=== PATIENT | male | born 1970 | race African-American/Black ===

== ENCOUNTER 2018-05-05 12:33 | Inpatient (IN) | payer BC ==
[2018-05-05 13:59] VITALS: BMI 25.8
--- NOTE | 2018-05-05 15:01 | HP ---
CIWA Score Nausea/Vomitin-Mild Nausea/No Vomiting Muscle Tremors: 2 Anxiety: 2 Agitation: 1-Slight > Activity Paroxysmal Sweats: 1-Minimal Palms Moist Orientation: 2-Disoriented Date<2 days (to date) Tacttile Disturbances: 1-Very Mild Itch/Numbness Auditory Disturbances: 1-Very Mild Visual Disturbances: 0-None Headache: 1-Very Mild CIWA-Ar Total Score: 12 - Admission Criteria [facility] Guidelines: Admission for Medically Managed Detox: Requires at least one of the followin. CIWA greater than 12 2. Seizures within the past 24 hours 3. Delirium tremens within the past 24 hours 4. Hallucinations within the past 24 hours 5. Acute intervention needed for co occurring medical disorder 6. Acute intervention needed for co occurring psychiatric disorder 7. Severe withdrawal that cannot be handled at a lower level of care (continued vomiting, continued diarrhea, abnormal vital signs) requiring intravenous medication and/or fluids 8. Admission ROS S - [facility] Chief Complaint: alcohol withdrawal sx Allergies/Adverse Reactions: Allergies Allergy/AdvReac Type Severity Reaction Status Date / Time No Known Allergies Allergy Verified 05/05/18 15:00 History of Present Illness: 48 years old with long history of alcohol nicotine dependence has hypertension asthma dry skin drinking alcohol since age 16 currently drinking volka 2 P daily x 2 weeks use cocaine 50$ every other day since age 30 years old out of intermediate since 2017 denies history of seizure or DT methadone maintenance program 70 mg po daily last dose 05/05/18 longest sobriety 7 years in intermediate Exam Limitations: No Limitations - Ebola screening Have you traveled outside of the country in the last 21 days: No Have you had contact with anyone from an Ebola affected area: No Have you been sick,other than usual withdrawal symptoms: No Do you have a fever: No - Review of Systems Constitutional: Changes in sleep, Weight Stable EENT: reports: Blurred Vision (eye glasses) Respiratory: reports: Wheezing Cardiac: reports: No Symptoms Reported GI: reports: Nausea, Poor Fluid Intake : reports: No Symptoms Reported Musculoskeletal: reports: Joint Pain (right shoulder pain x 4 months) Integumentary: reports: Dryness Neuro: reports: No Symptoms reported Endocrine: reports: No Symptoms Reported Hematology: reports: No Symptoms Reported Psychiatric: reports: Disorientated (disoriented to date) Other Systems: Reviewed and Negative Patient History - Patient Medical History Hx Anemia: No Hx Asthma: Yes Hx Chronic Obstructive Pulmonary Disease (COPD): No Hx Cancer: No Hx Cardiac Disorders: No Hx Congestive Heart Failure: No Hx Hypertension: Yes Hx Hypercholesterolemia: No Hx Pacemaker: No HX Cerebrovascular Accident: No Hx Seizures: No Hx Dementia: No Hx Diabetes: No Hx Gastrointestinal Disorders: Yes Hx Liver Disease: No Hx Genitourinary Disorders: No Hx Sexually Transmitted Disorders: No Hx Renal Disease (ESRD): No Hx Thyroid Disease: No Hx Human Immunodeficiency Virus (HIV): No Hx Hepatitis C: No Hx Depression: No Hx Suicide Attempt: No Hx Bipolar Disorder: No Hx Schizophrenia: No - Patient Surgical History Past Surgical History: No - PPD History Previous Implant?: Yes Documented Results: Negative w/o proof Implanted On Prior [facility] Admission?: No PPD to be Administered?: Yes - Smoking Cessation Smoking history: Current every day smoker Have you smoked in the past 12 months: Yes Aproximately how many cigarettes per day: 10 Hx Chewing Tobacco Use: No Initiated information on smoking cessation: No 'Breaking Loose' booklet given: 05/05/18 - Substance & Tx. History Hx Alcohol Use: Yes Hx Substance Use: Yes Substance Use Type: Alcohol, Cocaine, Heroin, Opiates Hx Substance Use Treatment: Yes (2014) - Substances Abused Alcohol Route: Oral Frequency: Daily Amount used: voldka 2 P Age of first use: 16 Date of Last Use: 05/05/18 Cocaine Route: Inhalation Frequency: 3-6 times per week Amount used: 50$ Age of first use: 30 Date of Last Use: 05/03/18 Family Disease History - Family Disease History Family Disease History: Other: Father (), Mother (), Brother ( ), Sister () Admission Physical Exam [facility] - Vital Signs Vital Signs: Vital Signs - 24 hr 05/05/18 13:53 Temperature 98.2 F Pulse Rate 72 Respiratory 20 Rate Blood Pressure 122/74 - Physical General Appearance: Yes: Nourished, Appropriately Dressed, Mild Distress, Tremorous, Irritable, Sweating, Anxious HEENTM: Yes: Hearing grossly Normal, Normocephalic, Normal Voice, Pharynx Normal , TM Erythema Respiratory: Yes: Chest Non-Tender, Lungs Clear, Normal Breath Sounds, No Respiratory Distress, No Accessory Muscle Use Neck: Yes: Supple, Trachea in good position Breast: Yes: Breasts Symetrical, No masses Cardiology: Yes: Regular Rhythm, Regular Rate, S1, S2 Abdominal: Yes: Non Tender, Flat, Soft Genitourinary: Yes: Within Normal Limits Back: Yes: Normal Inspection Musculoskeletal: Yes: full range of Motion, Gait Steady Extremities: Yes: Normal Inspection, Normal Range of Motion, Non-Tender, Tremors Neurological: Yes: Alert, Motor Strength 5/5, Normal Mood/Affect, Normal Response Integumentary: Yes: Dry Lymphatic: Yes: Within Normal Limits - Diagnostic (1) Alcohol dependence with uncomplicated withdrawal Current Visit: Yes Status: Acute (2) Methadone maintenance therapy patient Current Visit: Yes Status: Chronic (3) Otitis externa Current Visit: Yes Status: Acute Qualifiers: Otitis externa type: diffuse Chronicity: chronic Laterality: right Qualified Code(s): H60.311 - Diffuse otitis externa, right ear (4) Dry skin dermatitis Current Visit: Yes Status: Chronic (5) Fungal infection of foot Current Visit: Yes Status: Chronic Qualifiers: Laterality: bilateral Qualified Code(s): B35.3 - Tinea pedis (6) Asthma Current Visit: Yes Status: Chronic Qualifiers: Asthma severity: mild Asthma persistence: intermittent Asthma complication type: with status asthmaticus Qualified Code(s): J45.22 - Mild intermittent asthma with status asthmaticus (7) Nicotine dependence Current Visit: Yes Status: Acute Qualifiers: Nicotine product type: cigarettes Substance use status: in withdrawal Qualified Code(s): F17.213 - Nicotine dependence, cigarettes, with withdrawal Cleared for Admission [facility] - Detox or Rehab [facility] Level of Care: Medically Managed Detox Regimen/Protocol: Librium [facility] Breath Alcohol Content Breath Alcohol Content: 0.021 Urine Drug Screen - Control Is Test Valid: Yes - Results Drug Screen Negative: No Urine Drug Screen Results: RAYMUNDO-Cocaine, OPI-Opiates, OXY-Oxycodone
[2018-05-05] MEDS ORDERED: MENTHOL/PHENOL 1 EACH UD MM PRN (15:17)
[2018-05-05] MEDS ORDERED: chlordiazePOXIDE HCL 25 MG CAPSULE PO PRN (15:17)
[2018-05-05] MEDS ORDERED: NICOTINE POLACRILEX 2 MG GUM BC PRN (15:17)
[2018-05-05] MEDS ORDERED: MAGNESIUM HYDROX 2400MG/30ML ORAL SUSPENSION 30 ML CUP PO PRN (15:17)
[2018-05-05] MEDS ORDERED: MAG HYDROX/AL HYDROX/SIMETH 30 ML UNIT-DOSE CUP PO PRN (15:17)
[2018-05-05] MEDS ORDERED: P-EPHED 60MG/TRIPROLIDI 2.5MG TABLET PO PRN (15:17)
[2018-05-05] MEDS ORDERED: LOPERAMIDE HCL 2 MG CAPSULE PO PRN (15:17)
[2018-05-05] MEDS ORDERED: guaiFENesin/D-METHORPHAN HB 10 ML UNIT-DOSE CUPS PO PRN (15:17)
[2018-05-05] MEDS ORDERED: MAGNESIUM CITRATE 300 ML BOTTLE PO PRN (15:17)
[2018-05-05] MEDS ORDERED: MINERAL OIL/PETROLAT/WATER TOPICAL CREAM 113 GM JAR TP PRN (15:21)
[2018-05-05] MEDS: NICOTINE 14 MG/24 HOURS TOPICAL PATCH TD SCH (20:04)
[2018-05-05] MEDS: IBUPROFEN 600 MG TABLET (FP) PO PRN (20:08)
[2018-05-05] MEDS ORDERED: ALBUTEROL SO4 8 GM HFA INHALER IH ONE (20:55)
[2018-05-05] MEDS: ALBUTEROL SO4 8 GM HFA INHALER IH PRN (21:45)
[2018-05-05] MEDS ORDERED: MELATONIN 5 MG TABLETS PO PRN (22:00)
[2018-05-05] MEDS: THIAMINE HCL 100 MG TABLET (FP) PO SCH (22:13)
[2018-05-05] MEDS: chlordiazePOXIDE HCL 25 MG CAPSULE PO SCH (22:13)
[2018-05-05] MEDS: CLOTRIMAZOLE 1% CREAM 15 GM TUBE TP SCH (22:14)
[2018-05-05] MEDS: OFLOXACIN 0.3% OTIC SOLUTION 5 ML BOTTLE AD SCH (22:14)
[2018-05-05] MEDS: BUDESONIDE/FORMETEROL FUMARATE 80/4.5 mcg INHALER IH SCH (22:15)
[2018-05-05] MEDS: ACETAMINOPHEN 325 MG TABLET (FP) PO PRN (22:18)
[2018-05-06] MEDS: chlordiazePOXIDE HCL 25 MG CAPSULE PO SCH ×4 (06:29→22:17)
[2018-05-06] MEDS ORDERED: METHADONE HCL 10 MG TABLET PO SCH (07:30)
[2018-05-06] MEDS: IBUPROFEN 600 MG TABLET (FP) PO PRN ×2 (07:35→16:04)
[2018-05-06] MEDS ORDERED: METHADONE HCL 10 MG TABLET ONE (08:01)
[2018-05-06] MEDS ORDERED: METHADONE HCL 40 MG DISPERSABLE TABLET ONE (08:01)
[2018-05-06] MEDS: METHADONE 40 MG, METHADONE 30 MG PO SCH (08:02)
[2018-05-06] MEDS: ACETAMINOPHEN 325 MG TABLET (FP) PO PRN (09:32)
[2018-05-06] MEDS: CLOTRIMAZOLE 1% CREAM 15 GM TUBE TP SCH ×2 (10:33→22:19)
[2018-05-06] MEDS: OFLOXACIN 0.3% OTIC SOLUTION 5 ML BOTTLE AD SCH ×2 (10:33→22:18)
[2018-05-06 10:34] LABS: HEMATOCRIT 40.3 % (35.4-49); HEMOGLOBIN 12.9 GM/dL (11.7-16.9); MCH 28.9 pg (25.7-33.7); MEAN CELL VOLUME 90.5 fl (80-96); MEAN PLT VOLUME 8.1 fl (7.5-11.1); PLATELET COUNT 222 K/MM3 (134-434); RBC 4.46 M/mm3 (4.00-5.60); RDW 14.3 % (11.9-15.9); WHITE BLOOD COUNT 8.6 K/mm3 (4.0-10.0)
[2018-05-06] MEDS: PRENATAL VITAMINS W/ FOLIC ACID TABLET (FP) PO SCH (10:34)
[2018-05-06] MEDS: BUDESONIDE/FORMETEROL FUMARATE 80/4.5 mcg INHALER IH SCH ×2 (10:34→22:17)
[2018-05-06] MEDS: LIDOCAINE VISCOUS 2% ORAL/TOP 20 ML UNIT-DOSE CUP MM PRN ×2 (10:35→17:58)
[2018-05-06] MEDS: NICOTINE 14 MG/24 HOURS TOPICAL PATCH TD SCH (10:36)
[2018-05-06] MEDS ORDERED: COLLOIDAL OATMEAL 1 BAR EACH TP PRN (11:07)
[2018-05-06 12:02] LABS: ALBUMIN 3.2 g/dl (3.4-5.0); ALK PHOS 80 U/L (45-117); ANION GAP 7 MMOL/L (8-16); BILIRUBIN,TOTAL 0.2 mg/dL (0.2-1); BLOOD UREA NITROGEN 21 mg/dL (7-18); CALCIUM 8.6 mg/dL (8.5-10.1); CHLORIDE 111 mmol/L (98-107); CO2 26 mmol/L (21-32); GLUCOSE,RANDOM 103 mg/dL (74-106); POTASSIUM 4.6 mmol/L (3.5-5.1); SGOT/AST 20 U/L (15-37); SGPT/ALT 23 U/L (13-61); SODIUM 144 mmol/L (136-145); TOT PROT 6.6 g/dl (6.4-8.2)
--- NOTE | 2018-05-06 14:33 | PN ---
[facility] CIWA - CIWA Score Nausea/Vomitin-Mild Nausea/No Vomiting Muscle Tremors: 3 Anxiety: 3 Agitation: 4-Moderately Restless Paroxysmal Sweats: 1-Minimal Palms Moist Orientation: 1-Uncertain about Date Tacttile Disturbances: 0-None Auditory Disturbances: 0-None Visual Disturbances: 0-None Headache: 1-Very Mild CIWA-Ar Total Score: 14 S Progress Note (SOAP) Subjective: tremor sweat restlessness dry skin low energy Objective: 05/06/18 14:35 Vital Signs Temperature 97.1 F L 05/06/18 13:27 Pulse Rate 69 05/06/18 13:27 Respiratory Rate 20 05/06/18 13:27 Blood Pressure 135/82 05/06/18 13:27 O2 Sat by Pulse Oximetry (%) Laboratory Last Values WBC 8.6 K/mm3 (4.0-10.0) 05/06/18 07:00 RBC 4.46 M/mm3 (4.00-5.60) 05/06/18 07:00 Hgb 12.9 GM/dL (11.7-16.9) 05/06/18 07:00 Hct 40.3 % (35.4-49) 05/06/18 07:00 MCV 90.5 fl (80-96) 05/06/18 07:00 MCH 28.9 pg (25.7-33.7) 05/06/18 07:00 MCHC 32.0 g/dl (32.0-35.9) 05/06/18 07:00 RDW 14.3 % (11.9-15.9) 05/06/18 07:00 Plt Count 222 K/MM3 (134-434) 05/06/18 07:00 MPV 8.1 fl (7.5-11.1) 05/06/18 07:00 Sodium 144 mmol/L (136-145) 05/06/18 07:00 Potassium 4.6 mmol/L (3.5-5.1) 05/06/18 07:00 Chloride 111 mmol/L (98-107) H 05/06/18 07:00 Carbon Dioxide 26 mmol/L (21-32) 05/06/18 07:00 Anion Gap 7 MMOL/L (8-16) L 05/06/18 07:00 BUN 21 mg/dL (7-18) H 05/06/18 07:00 Creatinine 1.0 mg/dL (0.55-1.3) 05/06/18 07:00 Creat Clearance w eGFR > 60 (>60) 05/06/18 07:00 Random Glucose 103 mg/dL (74-106) 05/06/18 07:00 Calcium 8.6 mg/dL (8.5-10.1) 05/06/18 07:00 Total Bilirubin 0.2 mg/dL (0.2-1) 05/06/18 07:00 AST 20 U/L (15-37) 05/06/18 07:00 ALT 23 U/L (13-61) 05/06/18 07:00 Alkaline Phosphatase 80 U/L (45-117) 05/06/18 07:00 Total Protein 6.6 g/dl (6.4-8.2) 05/06/18 07:00 Albumin 3.2 g/dl (3.4-5.0) L 05/06/18 07:00 RPR Titer Nonreactive (NONREACTIVE) 05/06/18 07:00 lab noted Assessment: 05/06/18 14:36 withdrawal sx Plan: continue detox
[2018-05-06 19:09] LABS: URINE APPEARANCE CLOUDY; URINE BILIRUBIN NEGATIVE (<2.0 mg/dL); URINE COLOR YELLOW; URINE GLUCOSE (UA) NEGATIVE (NEGATIVE); URINE KETONE NEGATIVE (NEGATIVE); URINE LEUK ESTERASE NEGATIVE (NEGATIVE); URINE NITRITE NEGATIVE (NEGATIVE); URINE PROTEIN NEGATIVE (NEGATIVE); URINE UROBILINOGEN NEGATIVE mg/dL (0.2-1.0)
--- NOTE | 2018-05-06 20:06 | PN ---
[facility] Progress Note (SOAP) Subjective: c/o (R) upper molar tooth ache. Also c/o (R) shoulder pain w/ shooting pain down arm. Pain is sharp and a "10" Objective: FROM (R) shoulder w/o crepitus. Radial pulses (+). (R) rear molars w/o chips, cracks or outward cavitation. No increased swelling or erythema of gums. FROM of jaw. Vital Signs 05/06/18 05/06/18 13:27 17:50 Temperature 97.1 F L 97.1 F L Pulse Rate 69 71 Respiratory 20 18 Rate Blood Pressure 135/82 145/89 Assessment: Toothache (R) shoulder tenderness Plan: Lidocaine patch orajel
[2018-05-06] MEDS: LIDOCAINE 5% TOPICAL PATCH TP SCH (20:55)
[2018-05-06] MEDS: THIAMINE HCL 100 MG TABLET (FP) PO SCH (22:17)
[2018-05-06] MEDS: LIDOCAINE PATCH REMOVAL MC SCH (22:18)
[2018-05-06] MEDS: BENZOCAINE 20 % GEL TUBE MM PRN (23:29)
[2018-05-07] MEDS ORDERED: METHADONE HCL 10 MG TABLET ONE (04:41)
[2018-05-07] MEDS ORDERED: METHADONE HCL 40 MG DISPERSABLE TABLET ONE (04:41)
[2018-05-07] MEDS: METHADONE 40 MG, METHADONE 30 MG PO SCH (06:25)
[2018-05-07] MEDS: chlordiazePOXIDE HCL 25 MG CAPSULE PO SCH ×4 (06:26→17:32)
[2018-05-07] MEDS: ALBUTEROL SO4 8 GM HFA INHALER IH PRN (06:29)
[2018-05-07] MEDS: IBUPROFEN 600 MG TABLET (FP) PO PRN ×2 (09:07→19:41)
[2018-05-07] MEDS: NICOTINE 14 MG/24 HOURS TOPICAL PATCH TD SCH (09:30)
[2018-05-07] MEDS: PRENATAL VITAMINS W/ FOLIC ACID TABLET (FP) PO SCH (09:30)
[2018-05-07] MEDS: CLOTRIMAZOLE 1% CREAM 15 GM TUBE TP SCH ×2 (09:32→22:33)
[2018-05-07] MEDS: OFLOXACIN 0.3% OTIC SOLUTION 5 ML BOTTLE AD SCH ×2 (09:32→22:33)
[2018-05-07] MEDS: LIDOCAINE 5% TOPICAL PATCH TP SCH (09:32)
[2018-05-07] MEDS: BENZOCAINE 20 % GEL TUBE MM PRN ×2 (09:33→22:32)
[2018-05-07] MEDS: LIDOCAINE VISCOUS 2% ORAL/TOP 20 ML UNIT-DOSE CUP MM PRN (09:34)
[2018-05-07] MEDS: BUDESONIDE/FORMETEROL FUMARATE 80/4.5 mcg INHALER IH SCH ×2 (09:35→22:33)
--- NOTE | 2018-05-07 12:45 | PN ---
[facility] CIWA - CIWA Score Nausea/Vomitin-No Nausea/No Vomiting Muscle Tremors: None Anxiety: 2 Agitation: 2 Paroxysmal Sweats: No Perspiration Orientation: 0-Oriented Tacttile Disturbances: 3-Moderate Itch/Numb/Burn Auditory Disturbances: 0-None Visual Disturbances: 0-None Headache: 2-Mild CIWA-Ar Total Score: 9 S Progress Note (SOAP) Subjective: PATIENT C/O NUMBNESS AND TINGLING TO RIGHT HAND, TOOTHACHE, ANXIETY/ IRRITABILITY. Objective: 05/07/18 12:42 Vital Signs Temperature 98.4 F 05/07/18 10:56 Pulse Rate 77 05/07/18 10:56 Respiratory Rate 18 05/07/18 10:56 Blood Pressure 145/95 05/07/18 10:56 O2 Sat by Pulse Oximetry (%) Laboratory Tests 05/05/18 05/06/18 05/06/18 23:00 07:00 07:00 WBC 8.6 RBC 4.46 Hgb 12.9 Hct 40.3 MCV 90.5 MCH 28.9 MCHC 32.0 RDW 14.3 Plt Count 222 MPV 8.1 Sodium 144 Potassium 4.6 Chloride 111 H Carbon Dioxide 26 Anion Gap 7 L BUN 21 H Creatinine 1.0 Creat Clearance w eGFR > 60 Random Glucose 103 Calcium 8.6 Total Bilirubin 0.2 AST 20 ALT 23 Alkaline Phosphatase 80 Total Protein 6.6 Albumin 3.2 L Urine Color Yellow Urine Appearance Cloudy Urine pH 5.0 Ur Specific [place] 1.020 Urine Protein Negative Urine Glucose (UA) Negative Urine Ketones Negative Urine Blood Negative Urine Nitrite Negative Urine Bilirubin Negative Urine Urobilinogen Negative Ur Leukocyte Esterase Negative RPR Titer 05/06/18 07:00 WBC RBC Hgb Hct MCV MCH MCHC RDW Plt Count MPV Sodium Potassium Chloride Carbon Dioxide Anion Gap BUN Creatinine Creat Clearance w eGFR Random Glucose Calcium Total Bilirubin AST ALT Alkaline Phosphatase Total Protein Albumin Urine Color Urine Appearance Urine pH Ur Specific [place] Urine Protein Urine Glucose (UA) Urine Ketones Urine Blood Urine Nitrite Urine Bilirubin Urine Urobilinogen Ur Leukocyte Esterase RPR Titer Nonreactive PE: ALERT AND ORIENTED X 3 SKIN WARM AND DRY EXT FULL ROM, NO EDEMA, AMB AD NONI ANXIOUS/RESTLESSNESS MILD IRRITABILITY Assessment: 05/07/18 12:43 WITHDRAWAL SX TOOTHACHE NEUROPATHIC PAIN Plan: CONTINUE DETOX ENCOURAGE ORAL FLUIDS CONTINUE MOTRIN AND ORAGEL ADD GABAPENTIN 100MG TID CONTINUE TO MONITOR CLINICALLY
[2018-05-07] MEDS: GABAPENTIN 100 MG CAPSULE (FP) PO SCH ×2 (13:12→22:29)
[2018-05-07] MEDS ORDERED: cloNIDine HCL 0.1 MG TABLET PO ONE (17:47)
[2018-05-07] MEDS: THIAMINE HCL 100 MG TABLET (FP) PO SCH (22:29)
[2018-05-07] MEDS: chlordiazePOXIDE 5 MG CAPSULE PO SCH (22:33)
[2018-05-07] MEDS: LIDOCAINE PATCH REMOVAL MC SCH (22:33)
[2018-05-08] MEDS ORDERED: METHADONE HCL 10 MG TABLET ONE (04:41)
[2018-05-08] MEDS ORDERED: METHADONE HCL 40 MG DISPERSABLE TABLET ONE (04:41)
[2018-05-08] MEDS: GABAPENTIN 100 MG CAPSULE (FP) PO SCH ×3 (05:39→22:24)
[2018-05-08] MEDS: METHADONE 40 MG, METHADONE 30 MG PO SCH (05:39)
[2018-05-08] MEDS: chlordiazePOXIDE 5 MG CAPSULE PO SCH ×3 (05:48→17:35)
[2018-05-08] MEDS: IBUPROFEN 600 MG TABLET (FP) PO PRN ×3 (05:49→22:26)
--- NOTE | 2018-05-08 11:13 | PN ---
S Progress Note (SOAP) Subjective: Irritability, anxiety and sleep disturbance Objective: 05/08/18 11:10 Vital Signs Temperature 98.1 F 05/08/18 09:45 Pulse Rate 75 05/08/18 09:45 Respiratory Rate 18 05/08/18 09:45 Blood Pressure 130/86 05/08/18 09:45 O2 Sat by Pulse Oximetry (%) Laboratory Last Values WBC 8.6 K/mm3 (4.0-10.0) 05/06/18 07:00 RBC 4.46 M/mm3 (4.00-5.60) 05/06/18 07:00 Hgb 12.9 GM/dL (11.7-16.9) 05/06/18 07:00 Hct 40.3 % (35.4-49) 05/06/18 07:00 MCV 90.5 fl (80-96) 05/06/18 07:00 MCH 28.9 pg (25.7-33.7) 05/06/18 07:00 MCHC 32.0 g/dl (32.0-35.9) 05/06/18 07:00 RDW 14.3 % (11.9-15.9) 05/06/18 07:00 Plt Count 222 K/MM3 (134-434) 05/06/18 07:00 MPV 8.1 fl (7.5-11.1) 05/06/18 07:00 Sodium 144 mmol/L (136-145) 05/06/18 07:00 Potassium 4.6 mmol/L (3.5-5.1) 05/06/18 07:00 Chloride 111 mmol/L (98-107) H 05/06/18 07:00 Carbon Dioxide 26 mmol/L (21-32) 05/06/18 07:00 Anion Gap 7 MMOL/L (8-16) L 05/06/18 07:00 BUN 21 mg/dL (7-18) H 05/06/18 07:00 Creatinine 1.0 mg/dL (0.55-1.3) 05/06/18 07:00 Creat Clearance w eGFR > 60 (>60) 05/06/18 07:00 Random Glucose 103 mg/dL (74-106) 05/06/18 07:00 Calcium 8.6 mg/dL (8.5-10.1) 05/06/18 07:00 Total Bilirubin 0.2 mg/dL (0.2-1) 05/06/18 07:00 AST 20 U/L (15-37) 05/06/18 07:00 ALT 23 U/L (13-61) 05/06/18 07:00 Alkaline Phosphatase 80 U/L (45-117) 05/06/18 07:00 Total Protein 6.6 g/dl (6.4-8.2) 05/06/18 07:00 Albumin 3.2 g/dl (3.4-5.0) L 05/06/18 07:00 Urine Color Yellow 05/05/18 23:00 Urine Appearance Cloudy 05/05/18 23:00 Urine pH 5.0 (5.0-8.0) 05/05/18 23:00 Ur Specific [place] 1.020 (1.010-1.035) 05/05/18 23:00 Urine Protein Negative (NEGATIVE) 05/05/18 23:00 Urine Glucose (UA) Negative (NEGATIVE) 05/05/18 23:00 Urine Ketones Negative (NEGATIVE) 05/05/18 23:00 Urine Blood Negative (NEGATIVE) 05/05/18 23:00 Urine Nitrite Negative (NEGATIVE) 05/05/18 23:00 Urine Bilirubin Negative (<2.0 mg/dL) 05/05/18 23:00 Urine Urobilinogen Negative mg/dL (0.2-1.0) 05/05/18 23:00 Ur Leukocyte Esterase Negative (NEGATIVE) 05/05/18 23:00 RPR Titer Nonreactive (NONREACTIVE) 05/06/18 07:00 Labs noted Assessment: 05/08/18 11:11 Withdrawal sx Plan: Continue detox
[2018-05-08] MEDS: LIDOCAINE 5% TOPICAL PATCH TP SCH (11:44)
[2018-05-08] MEDS: PRENATAL VITAMINS W/ FOLIC ACID TABLET (FP) PO SCH (11:45)
[2018-05-08] MEDS: OFLOXACIN 0.3% OTIC SOLUTION 5 ML BOTTLE AD SCH ×2 (11:45→22:30)
[2018-05-08] MEDS: BUDESONIDE/FORMETEROL FUMARATE 80/4.5 mcg INHALER IH SCH ×2 (11:46→22:31)
[2018-05-08] MEDS: CLOTRIMAZOLE 1% CREAM 15 GM TUBE TP SCH ×2 (11:46→22:30)
[2018-05-08] MEDS: NICOTINE 14 MG/24 HOURS TOPICAL PATCH TD SCH (11:49)
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
[2018-05-08] MEDS: THIAMINE HCL 100 MG TABLET (FP) PO SCH (22:24)
[2018-05-08] MEDS: busPIRone HCL 10 MG TABLET (FP) PO SCH (22:30)
[2018-05-08] MEDS: LIDOCAINE PATCH REMOVAL MC SCH (22:30)
[2018-05-08] MEDS: chlordiazePOXIDE HCL 10 MG CAPSULE PO SCH (22:31)
[2018-05-09] MEDS ORDERED: METHADONE HCL 10 MG TABLET ONE (04:15)
[2018-05-09] MEDS ORDERED: METHADONE HCL 40 MG DISPERSABLE TABLET ONE (04:16)
[2018-05-09] MEDS: METHADONE 40 MG, METHADONE 30 MG PO SCH (06:40)
[2018-05-09] MEDS: GABAPENTIN 100 MG CAPSULE (FP) PO SCH (07:37)
[2018-05-09] MEDS: chlordiazePOXIDE HCL 10 MG CAPSULE PO SCH ×2 (07:37→10:37)
[2018-05-09 09:48] VITALS: BP 155/93; PULSE 71; TEMP 98
[2018-05-09] MEDS: OFLOXACIN 0.3% OTIC SOLUTION 5 ML BOTTLE AD SCH (10:31)
[2018-05-09] MEDS: PRENATAL VITAMINS W/ FOLIC ACID TABLET (FP) PO SCH (10:31)
[2018-05-09] MEDS: CLOTRIMAZOLE 1% CREAM 15 GM TUBE TP SCH (10:31)
[2018-05-09] MEDS: busPIRone HCL 10 MG TABLET (FP) PO SCH (10:32)
[2018-05-09] MEDS: NICOTINE 14 MG/24 HOURS TOPICAL PATCH TD SCH (10:34)
[2018-05-09] MEDS: IBUPROFEN 600 MG TABLET (FP) PO PRN (10:34)
[2018-05-09] MEDS: LIDOCAINE 5% TOPICAL PATCH TP SCH (10:35)
[2018-05-09] MEDS: BUDESONIDE/FORMETEROL FUMARATE 80/4.5 mcg INHALER IH SCH (10:37)
--- NOTE | 2018-05-09 14:23 | DS ---
[facility] Detox Discharge Summary Admission Date: 05/05/18 Discharge Date: 05/09/18 - History Present History: Alcohol Dependence, MMTP Additional Comments: Patient completed detox successfully. Patient is A, A, Ox3, in nad, vss, ambulatory. Patient instructed to follow up with PCP within 1-2 weeks. Pertinent Past History: Alcohol dependence Opioid dependence on agonist Asthma Nicotine dependence - Physical Exam Results Vital Signs: Vital Signs Temperature 98.0 F 05/09/18 09:47 Pulse Rate 71 05/09/18 09:47 Respiratory Rate 18 05/09/18 09:47 Blood Pressure 155/93 05/09/18 09:47 O2 Sat by Pulse Oximetry (%) Pertinent Admission Physical Exam Findings: Withdrawal symptoms Laboratory Tests 05/05/18 05/06/18 05/06/18 23:00 07:00 07:00 WBC 8.6 RBC 4.46 Hgb 12.9 Hct 40.3 MCV 90.5 MCH 28.9 MCHC 32.0 RDW 14.3 Plt Count 222 MPV 8.1 Sodium 144 Potassium 4.6 Chloride 111 H Carbon Dioxide 26 Anion Gap 7 L BUN 21 H Creatinine 1.0 Creat Clearance w eGFR > 60 Random Glucose 103 Calcium 8.6 Total Bilirubin 0.2 AST 20 ALT 23 Alkaline Phosphatase 80 Total Protein 6.6 Albumin 3.2 L Urine Color Yellow Urine Appearance Cloudy Urine pH 5.0 Ur Specific [place] 1.020 Urine Protein Negative Urine Glucose (UA) Negative Urine Ketones Negative Urine Blood Negative Urine Nitrite Negative Urine Bilirubin Negative Urine Urobilinogen Negative Ur Leukocyte Esterase Negative RPR Titer 05/06/18 07:00 WBC RBC Hgb Hct MCV MCH MCHC RDW Plt Count MPV Sodium Potassium Chloride Carbon Dioxide Anion Gap BUN Creatinine Creat Clearance w eGFR Random Glucose Calcium Total Bilirubin AST ALT Alkaline Phosphatase Total Protein Albumin Urine Color Urine Appearance Urine pH Ur Specific [place] Urine Protein Urine Glucose (UA) Urine Ketones Urine Blood Urine Nitrite Urine Bilirubin Urine Urobilinogen Ur Leukocyte Esterase RPR Titer Nonreactive Labs reviewed: bun 21, encouraged PO water intake for hydration - Treatment Hospital Course: Detox Protocol Followed, Detoxed Safely, Responded well, Discharged Condition Good - Medication Discharge Medications: Ambulatory Orders Albuterol Sulfate Inhaler - [Ventolin Hfa Inhaler -] 2 inh PO Q4H 05/05/18 Budesonide/Formeterol Fumarate [SYMBICORT 80/4.5mcg -] 1 inh PO BID 05/05/18 Buspirone HCl [Buspar -] 10 mg PO BID 05/05/18 Quetiapine Fumarate [Seroquel -] 50 mg PO HS 05/05/18 - Diagnosis (1) Azotemia Status: Acute (2) Alcohol dependence with uncomplicated withdrawal Status: Acute (3) Asthma Status: Chronic Qualifiers: Asthma severity: mild Asthma persistence: intermittent Asthma complication type: with status asthmaticus Qualified Code(s): J45.22 - Mild intermittent asthma with status asthmaticus (4) Methadone maintenance therapy patient Status: Chronic (5) Nicotine dependence Status: Chronic Qualifiers: Nicotine product type: cigarettes Substance use status: in withdrawal Qualified Code(s): F17.213 - Nicotine dependence, cigarettes, with withdrawal - AMA Did Patient Leave Against Medical Advice: No (F/U with PCP within 1-2 weeks)
== END 2018-05-09 12:35 | disposition home or self-care (01) | DRG 773 ==
LOC: YASAS 12:33 → Y3N 18:32
PROC: HZ2ZZZZ Detoxification Services for Substance Abuse Treatment (ICD-10-PCS; principal; 2018-05-05)
DX: F10.230 Alcohol dependence with withdrawal, uncomplicated (principal); F11.20 Opioid dependence, uncomplicated; F14.20 Cocaine dependence, uncomplicated; F17.213 Nicotine dependence, cigarettes, with withdrawal; F31.9 Bipolar disorder, unspecified; F19.24 Other psychoactive substance dependence with psychoactive substance-induced mood disorder; B35.3 Tinea pedis; J45.22 Mild intermittent asthma with status asthmaticus; R79.89 Other specified abnormal findings of blood chemistry; I10 Essential (primary) hypertension; M25.511 Pain in right shoulder; H60.311 Diffuse otitis externa, right ear; M79.2 Neuralgia and neuritis, unspecified; L85.3 Xerosis cutis; K08.89 Other specified disorders of teeth and supporting structures; Z85.07 Personal history of malignant neoplasm of pancreas; Z91.14 Patient's other noncompliance with medication regimen; Z59.0 Homelessness
CPT/HCPCS: 36415; 80053; 81003; 85027; 86593; J0735

== ENCOUNTER 2021-11-28 09:14 | Inpatient (IN) | payer BC, OTHER ==
[2021-11-28 09:53] VITALS: BMI 21.7
[2021-11-28] MEDS ORDERED: MAGNESIUM CITRATE 300 ML BOTTLE PO PRN (10:28)
[2021-11-28] MEDS ORDERED: IBUPROFEN 400 MG TABLET (FP) PO PRN (10:28)
[2021-11-28] MEDS ORDERED: LOPERAMIDE HCL 2 MG CAPSULE PO PRN (10:28)
[2021-11-28] MEDS ORDERED: P-EPHED 60MG/TRIPROLIDI 2.5MG TABLET PO PRN (10:28)
[2021-11-28] MEDS ORDERED: NICOTINE 10 MG CARTRIDGE (INHALER) IH PRN (10:28)
[2021-11-28] MEDS ORDERED: MAGNESIUM HYDROX 2400MG/30ML ORAL SUSPENSION 30 ML CUP PO PRN (10:28)
[2021-11-28] MEDS ORDERED: NICOTINE POLACRILEX 4 MG GUM BUC PRN (10:28)
[2021-11-28] MEDS ORDERED: guaiFENesin 200 MG/10 ML 10 ML UNIT-DOSE CUPS PO PRN (10:28)
[2021-11-28] MEDS ORDERED: MAG HYDROX/AL HYDROX/SIMETH 30 ML UNIT-DOSE CUP PO PRN (10:28)
[2021-11-28 14:25] LABS: HEMATOCRIT 39.2 % (35.4-49); HEMOGLOBIN 13.1 GM/dL (11.7-16.9); MCH 30.1 pg (25.7-33.7); MCHC 33.4 g/dl (32.0-35.9); MEAN PLT VOLUME 7.5 fl (7.5-11.1); PLATELET COUNT 307 10^3/uL (134-434); RBC 4.36 M/mm3 (4.00-5.60); RDW 14.1 % (11.9-15.9)
[2021-11-28 15:05] LABS: ALBUMIN 3.2 g/dl (3.4-5.0); CALCIUM 9.5 mg/dL (8.5-10.1)
[2021-11-28] MEDS ORDERED: TUBERCULIN PPD 5 TU/0.1ML VIAL ID ONE (15:05)
[2021-11-28 15:06] LABS: BLOOD UREA NITROGEN 14.1 mg/dL (7-18)
[2021-11-28 15:09] LABS: CREATININE 0.9 mg/dL (0.55-1.3)
[2021-11-28 15:10] LABS: TOT PROT 7.6 g/dl (6.4-8.2)
[2021-11-28] MEDS: BACITRACIN 0.9 GM PACKET TP SCH (15:10)
[2021-11-28] MEDS: methaDONE HCL 10 MG TABLET PO SCH (15:10)
[2021-11-28 15:11] LABS: BILIRUBIN,TOTAL 0.3 mg/dL (0.2-1)
[2021-11-28] MEDS: hydrOXYzine PAMOATE 25 MG CAPSULE (FP) PO SCH ×3 (15:11→21:44)
[2021-11-28] MEDS: NICOTINE 7 MG/24 HOURS TOPICAL PATCH TD SCH (15:12)
[2021-11-28] MEDS: PRENATAL VITAMINS W/ FOLIC ACID TABLET (FP) PO SCH (15:41)
[2021-11-28 15:42] LABS: SYPHILIS W/ RPR CONF REACTIVE (NONREACTIVE)
[2021-11-28] MEDS: THIAMINE HCL 100 MG TABLET (FP) PO SCH (21:44)
[2021-11-28] MEDS ORDERED: MELATONIN 5 MG TABLETS PO SCH (22:00)
[2021-11-29] MEDS: methaDONE HCL 10 MG TABLET PO SCH (06:37)
[2021-11-29] MEDS: hydrOXYzine PAMOATE 25 MG CAPSULE (FP) PO SCH ×3 (06:38→14:31)
[2021-11-29 10:11] LABS: URINE APPEARANCE CLEAR; URINE BILIRUBIN NEGATIVE (NEGATIVE); URINE COLOR YELLOW; URINE GLUCOSE (UA) NEGATIVE (NEGATIVE); URINE KETONE NEGATIVE (NEGATIVE); URINE LEUK ESTERASE NEGATIVE (NEGATIVE); URINE NITRITE NEGATIVE (NEGATIVE); URINE PROTEIN NEGATIVE (NEGATIVE); URINE UROBILINOGEN 0.2 mg/dL (0.2-1.0)
[2021-11-29] MEDS: PRENATAL VITAMINS W/ FOLIC ACID TABLET (FP) PO SCH (10:11)
[2021-11-29] MEDS: NICOTINE 7 MG/24 HOURS TOPICAL PATCH TD SCH (10:11)
[2021-11-29] MEDS: BACITRACIN 0.9 GM PACKET TP SCH ×2 (10:12→14:30)
[2021-11-29] MEDS ORDERED: hydrOXYzine PAMOATE 25 MG CAPSULE (FP) PO PRN (15:08)
[2021-11-29] MEDS: THIAMINE HCL 100 MG TABLET (FP) PO SCH (21:57)
[2021-11-29] MEDS ORDERED: QUEtiapine FUMARATE 50 MG TABLET PO PRN (22:00)
[2021-11-30] MEDS: methaDONE HCL 10 MG TABLET PO SCH (06:06)
[2021-11-30] MEDS: ACETAMINOPHEN 325 MG TABLET (FP) PO PRN (06:54)
[2021-11-30] MEDS: BACITRACIN 0.9 GM PACKET TP SCH (09:57)
[2021-11-30] MEDS: NICOTINE 7 MG/24 HOURS TOPICAL PATCH TD SCH (09:57)
[2021-11-30] MEDS: PRENATAL VITAMINS W/ FOLIC ACID TABLET (FP) PO SCH (09:57)
[2021-11-30] MEDS: THIAMINE HCL 100 MG TABLET (FP) PO SCH (21:13)
[2021-12-01] MEDS: methaDONE HCL 10 MG TABLET PO SCH (06:08)
[2021-12-01] MEDS: PRENATAL VITAMINS W/ FOLIC ACID TABLET (FP) PO SCH (10:07)
[2021-12-01] MEDS: NICOTINE 7 MG/24 HOURS TOPICAL PATCH TD SCH (10:07)
[2021-12-01] MEDS: BACITRACIN 0.9 GM PACKET TP SCH (10:07)
[2021-12-01] MEDS: THIAMINE HCL 100 MG TABLET (FP) PO SCH (22:18)
[2021-12-02] MEDS: methaDONE HCL 10 MG TABLET PO SCH (06:14)
[2021-12-02] MEDS: PRENATAL VITAMINS W/ FOLIC ACID TABLET (FP) PO SCH (10:15)
[2021-12-02] MEDS: NICOTINE 7 MG/24 HOURS TOPICAL PATCH TD SCH (10:15)
[2021-12-02] MEDS: BACITRACIN 0.9 GM PACKET TP SCH (10:15)
[2021-12-02] MEDS ORDERED: PENICILLIN G BENZATHINE 2,400,000 UNIT/4 ML PFS IM ONE (14:53)
[2021-12-02] MEDS: THIAMINE HCL 100 MG TABLET (FP) PO SCH (23:17)
[2021-12-03] MEDS: methaDONE HCL 10 MG TABLET PO SCH (06:45)
[2021-12-03] MEDS: NICOTINE 7 MG/24 HOURS TOPICAL PATCH TD SCH (10:33)
[2021-12-03] MEDS: PRENATAL VITAMINS W/ FOLIC ACID TABLET (FP) PO SCH (10:33)
[2021-12-03] MEDS: BACITRACIN 0.9 GM PACKET TP SCH (10:33)
[2021-12-03] MEDS: THIAMINE HCL 100 MG TABLET (FP) PO SCH (21:42)
[2021-12-04] MEDS: methaDONE HCL 10 MG TABLET PO SCH (06:08)
[2021-12-04] MEDS: PRENATAL VITAMINS W/ FOLIC ACID TABLET (FP) PO SCH (10:07)
[2021-12-04] MEDS: NICOTINE 7 MG/24 HOURS TOPICAL PATCH TD SCH (10:07)
[2021-12-04] MEDS: THIAMINE HCL 100 MG TABLET (FP) PO SCH (21:44)
[2021-12-05] MEDS: methaDONE HCL 10 MG TABLET PO SCH (06:36)
[2021-12-05] MEDS: PRENATAL VITAMINS W/ FOLIC ACID TABLET (FP) PO SCH (09:52)
[2021-12-05] MEDS: NICOTINE 7 MG/24 HOURS TOPICAL PATCH TD SCH (09:52)
[2021-12-05] MEDS: THIAMINE HCL 100 MG TABLET (FP) PO SCH (21:49)
[2021-12-06] MEDS: methaDONE HCL 10 MG TABLET PO SCH (06:36)
[2021-12-06] MEDS: NICOTINE 7 MG/24 HOURS TOPICAL PATCH TD SCH (10:29)
[2021-12-06] MEDS: PRENATAL VITAMINS W/ FOLIC ACID TABLET (FP) PO SCH (10:29)
[2021-12-06] MEDS: THIAMINE HCL 100 MG TABLET (FP) PO SCH (21:27)
[2021-12-07] MEDS: methaDONE HCL 10 MG TABLET PO SCH (06:35)
[2021-12-07] MEDS: NICOTINE 7 MG/24 HOURS TOPICAL PATCH TD SCH (10:43)
[2021-12-07] MEDS: PRENATAL VITAMINS W/ FOLIC ACID TABLET (FP) PO SCH (10:43)
[2021-12-07] MEDS: THIAMINE HCL 100 MG TABLET (FP) PO SCH (21:54)
[2021-12-08] MEDS: methaDONE HCL 10 MG TABLET PO SCH (06:22)
[2021-12-08] MEDS: PRENATAL VITAMINS W/ FOLIC ACID TABLET (FP) PO SCH (09:20)
[2021-12-08] MEDS: ACETAMINOPHEN 325 MG TABLET (FP) PO PRN (09:20)
[2021-12-08] MEDS: NICOTINE 7 MG/24 HOURS TOPICAL PATCH TD SCH (09:27)
[2021-12-08] MEDS: THIAMINE HCL 100 MG TABLET (FP) PO SCH (22:00)
[2021-12-09] MEDS: methaDONE HCL 10 MG TABLET PO SCH (06:00)
[2021-12-09] MEDS ORDERED: PENICILLIN G BENZATHINE 2,400,000 UNIT/4 ML PFS IM ONE (10:00)
[2021-12-09] MEDS: PRENATAL VITAMINS W/ FOLIC ACID TABLET (FP) PO SCH (11:29)
[2021-12-09] MEDS: NICOTINE 7 MG/24 HOURS TOPICAL PATCH TD SCH (11:29)
[2021-12-09] MEDS: THIAMINE HCL 100 MG TABLET (FP) PO SCH (21:11)
[2021-12-10] MEDS: methaDONE HCL 10 MG TABLET PO SCH (06:41)
[2021-12-10] MEDS: PRENATAL VITAMINS W/ FOLIC ACID TABLET (FP) PO SCH (10:16)
[2021-12-10] MEDS: NICOTINE 7 MG/24 HOURS TOPICAL PATCH TD SCH (10:17)
[2021-12-10] MEDS: THIAMINE HCL 100 MG TABLET (FP) PO SCH (21:55)
[2021-12-11] MEDS: methaDONE HCL 10 MG TABLET PO SCH (06:10)
[2021-12-11] MEDS: PRENATAL VITAMINS W/ FOLIC ACID TABLET (FP) PO SCH (10:28)
[2021-12-11] MEDS: NICOTINE 7 MG/24 HOURS TOPICAL PATCH TD SCH (10:28)
[2021-12-11] MEDS: THIAMINE HCL 100 MG TABLET (FP) PO SCH (21:35)
[2021-12-12] MEDS: methaDONE HCL 10 MG TABLET PO SCH (05:56)
[2021-12-12] MEDS: ACETAMINOPHEN 325 MG TABLET (FP) PO PRN (07:34)
[2021-12-12] MEDS: NICOTINE 7 MG/24 HOURS TOPICAL PATCH TD SCH (10:26)
[2021-12-12] MEDS: PRENATAL VITAMINS W/ FOLIC ACID TABLET (FP) PO SCH (10:26)
[2021-12-12] MEDS: THIAMINE HCL 100 MG TABLET (FP) PO SCH (22:04)
[2021-12-13] MEDS: methaDONE HCL 10 MG TABLET PO SCH (06:05)
[2021-12-13] MEDS: PRENATAL VITAMINS W/ FOLIC ACID TABLET (FP) PO SCH (10:01)
[2021-12-13] MEDS: NICOTINE 7 MG/24 HOURS TOPICAL PATCH TD SCH (10:01)
[2021-12-13] MEDS: THIAMINE HCL 100 MG TABLET (FP) PO SCH (21:41)
[2021-12-14] MEDS: methaDONE HCL 10 MG TABLET PO SCH (06:23)
[2021-12-14 07:06] VITALS: RESP 18
[2021-12-14] MEDS: NICOTINE 7 MG/24 HOURS TOPICAL PATCH TD SCH (10:09)
[2021-12-14] MEDS: PRENATAL VITAMINS W/ FOLIC ACID TABLET (FP) PO SCH ×2 (10:09→10:17)
[2021-12-14] MEDS: THIAMINE HCL 100 MG TABLET (FP) PO SCH (22:05)
[2021-12-15] MEDS: methaDONE HCL 10 MG TABLET PO SCH (06:06)
[2021-12-15] MEDS: PRENATAL VITAMINS W/ FOLIC ACID TABLET (FP) PO SCH (09:56)
[2021-12-15] MEDS: NICOTINE 7 MG/24 HOURS TOPICAL PATCH TD SCH (09:56)
[2021-12-15] MEDS: THIAMINE HCL 100 MG TABLET (FP) PO SCH (22:24)
[2021-12-16] MEDS: methaDONE HCL 10 MG TABLET PO SCH (05:54)
[2021-12-16] MEDS ORDERED: PENICILLIN G BENZATHINE 2,400,000 UNIT/4 ML PFS IM ONE (10:00)
[2021-12-16] MEDS: NICOTINE 7 MG/24 HOURS TOPICAL PATCH TD SCH (10:54)
[2021-12-16] MEDS: PRENATAL VITAMINS W/ FOLIC ACID TABLET (FP) PO SCH (14:38)
[2021-12-16] MEDS: THIAMINE HCL 100 MG TABLET (FP) PO SCH (23:39)
[2021-12-17] MEDS: methaDONE HCL 10 MG TABLET PO SCH (06:41)
[2021-12-17] MEDS: NICOTINE 7 MG/24 HOURS TOPICAL PATCH TD SCH (10:08)
[2021-12-17] MEDS: PRENATAL VITAMINS W/ FOLIC ACID TABLET (FP) PO SCH (10:08)
[2021-12-17] MEDS: THIAMINE HCL 100 MG TABLET (FP) PO SCH (21:57)
[2021-12-18] MEDS: methaDONE HCL 10 MG TABLET PO SCH (06:07)
[2021-12-18] MEDS: NICOTINE 7 MG/24 HOURS TOPICAL PATCH TD SCH (10:22)
[2021-12-18] MEDS: PRENATAL VITAMINS W/ FOLIC ACID TABLET (FP) PO SCH (10:22)
[2021-12-18] MEDS: THIAMINE HCL 100 MG TABLET (FP) PO SCH (22:01)
[2021-12-19] MEDS ORDERED: methaDONE HCL 10 MG TABLET PO SCH (06:00)
[2021-12-19 07:14] VITALS: BP 120/74; PULSE 93; TEMP 96.5
[2021-12-19] MEDS: NICOTINE 7 MG/24 HOURS TOPICAL PATCH TD SCH (09:07)
[2021-12-19] MEDS: PRENATAL VITAMINS W/ FOLIC ACID TABLET (FP) PO SCH (09:08)
== END 2021-12-19 09:25 | disposition home or self-care (01) | DRG 772 ==
LOC: YASAS 09:14 → Y5N 12:59
PROVIDERS: ADMIT Allergy & Immunology; ATTEND Psychiatry & Neurology Pain Medicine
PROC: HZ42ZZZ Group Counseling for Substance Abuse Treatment, Cognitive-Behavioral (ICD-10-PCS; principal; 2021-11-28)
DX: F11.20 Opioid dependence, uncomplicated (principal); F14.20 Cocaine dependence, uncomplicated; F17.210 Nicotine dependence, cigarettes, uncomplicated; F31.9 Bipolar disorder, unspecified; F19.24 Other psychoactive substance dependence with psychoactive substance-induced mood disorder; I10 Essential (primary) hypertension; E11.9 Type 2 diabetes mellitus without complications; J45.909 Unspecified asthma, uncomplicated; M25.511 Pain in right shoulder; G89.29 Other chronic pain; R76.8 Other specified abnormal immunological findings in serum; Z86.19 Personal history of other infectious and parasitic diseases; Z56.0 Unemployment, unspecified; Z59.00 Homelessness unspecified
CPT/HCPCS: 36415; 80053; 81003; 82962; 85027; 86593; 86780; 86803; 87811; 93005; 93010; C9803-CS; U0003; U0005

== ENCOUNTER 2023-08-03 14:35 | Inpatient (IN) | payer OTHER ==
[2023-08-03 15:17] VITALS: BMI 25.3
[2023-08-03] MEDS ORDERED: POLYETHYLENE GLYCOL (HEALTHYLAX) 3350 17 GM PACKET PO PRN (15:55)
[2023-08-03] MEDS ORDERED: NICOTINE POLACRILEX 2 MG GUM BUC PRN (15:55)
[2023-08-03] MEDS ORDERED: NALOXONE HCL 0.4 MG/ML VIAL IM PRN (15:55)
[2023-08-03] MEDS ORDERED: ACETAMINOPHEN 325 MG TABLET (FP) PO PRN (15:55)
[2023-08-03] MEDS ORDERED: BENZONATATE 200 MG CAPSULE PO PRN (15:55)
[2023-08-03] MEDS ORDERED: LOPERAMIDE HCL 2 MG CAPSULE PO PRN (15:55)
[2023-08-03] MEDS ORDERED: IBUPROFEN 400 MG TABLET (FP) PO PRN (15:55)
[2023-08-03] MEDS ORDERED: NALOXONE HCL (KLOXXADO) 8 MG SPRAY NS PRN (15:55)
[2023-08-03] MEDS ORDERED: guaiFENesin 600 MG TABLET.ER (FP) PO PRN (15:55)
[2023-08-03] MEDS ORDERED: BENZOCAINE/MENTHOL (CHLORASEPTIC ) LOZENGE MM PRN (15:55)
[2023-08-03] MEDS ORDERED: MAGNESIUM HYDROX 2400MG/30ML ORAL SUSPENSION 30 ML CUP PO PRN (15:55)
[2023-08-03] MEDS ORDERED: MAG HYDROX/AL HYDROX/SIMETH 30 ML UNIT-DOSE CUP PO PRN (15:55)
[2023-08-03] MEDS: INSULIN ASPART SLIDING SCALE (NOVOLOG) 1 VIAL SQ SCH (17:00)
[2023-08-03] MEDS ORDERED: INSULIN (NOVOLOG) ASPART 100 UNITS/ML 10ML VIAL ONE ×2 (17:01→20:47)
[2023-08-03] MEDS ORDERED: TUBERCULIN PPD 5 TU/0.1ML VIAL ID ONE ×2 (20:46→22:15)
[2023-08-03] MEDS: TUBERCULIN PPD 5 TU/0.1ML SYRINGE (IN PATIENT USE ONLY) ID ONE (22:43)
[2023-08-03] MEDS: THIAMINE HCL 100 MG TABLET (FP) PO SCH (23:03)
[2023-08-03] MEDS: MELATONIN 5 MG TABLETS PO SCH (23:03)
[2023-08-04] MEDS ORDERED: INSULIN (NOVOLOG) ASPART 100 UNITS/ML 10ML VIAL ONE ×2 (06:59→16:41)
[2023-08-04] MEDS: methaDONE HCL 10 MG TABLET PO SCH (10:05)
[2023-08-04] MEDS: NICOTINE 21 MG/24 HOURS TOPICAL PATCH TD SCH (10:06)
[2023-08-04] MEDS: PRENATAL VITAMINS W/ FOLIC ACID TABLET (FP) PO SCH (10:07)
[2023-08-04] MEDS: LISINOPRIL 10 MG TABLET PO SCH (10:49)
[2023-08-04] MEDS: ALBUTEROL SO4 HFA INHALER IH SCH (10:50)
[2023-08-04 12:17] LABS: HEMATOCRIT 37.9 % (35.4-49); HEMOGLOBIN 12.8 GM/dL (11.7-16.9); MCH 29.2 pg (25.7-33.7); MCHC 33.7 g/dl (32.0-35.9); MEAN CELL VOLUME 86.5 fl (80-96); MEAN PLT VOLUME 8.2 fl (7.5-11.1); PLATELET COUNT 326 10^3/uL (134-434); RBC 4.38 M/mm3 (4.00-5.60); RDW 14.5 % (11.9-15.9)
[2023-08-04 12:18] LABS: CHLORIDE 106 mmol/L (98-107); POTASSIUM 4.3 mmol/L (3.5-5.1); SODIUM 139 mmol/L (136-145)
[2023-08-04 12:26] LABS: ANION GAP 4 mmol/L (4-13); BLOOD UREA NITROGEN 13.9 mg/dL (7-18); CO2 29 mmol/L (21-32); GLUCOSE,RANDOM 259 mg/dL (74-106)
[2023-08-04 12:28] LABS: SGOT/AST 7 U/L (15-37); SGPT/ALT 12 U/L (13-61)
[2023-08-04 12:30] LABS: TOT PROT 7.5 g/dl (6.4-8.2)
[2023-08-04 12:31] LABS: BILIRUBIN,TOTAL 0.2 mg/dL (0.2-1)
[2023-08-04 12:32] LABS: ALK PHOS 104 U/L (45-117)
[2023-08-04] MEDS ORDERED: AMMONIUM LACTATE 12% LOTION 225 GM BOTTLE TP PRN (13:28)
[2023-08-04] MEDS ORDERED: TUBERCULIN PPD 5 TU/0.1ML VIAL ID ONE (14:50)
[2023-08-04] MEDS: DOCUSATE SODIUM 100 MG CAPSULE (FP) PO SCH (14:53)
[2023-08-04] MEDS: BACITRACIN 0.9 GM PACKET TP SCH (14:54)
[2023-08-04] MEDS: TUBERCULIN PPD 5 TU/0.1ML SYRINGE (IN PATIENT USE ONLY) ID ONE (14:57)
[2023-08-04] MEDS: BACLOFEN 10 MG TABLET (FP) PO SCH (22:29)
[2023-08-05] MEDS ORDERED: INSULIN (NOVOLOG) ASPART 100 UNITS/ML 10ML VIAL ONE ×2 (11:49→16:37)
[2023-08-05] MEDS: cloNIDine HCL 0.1 MG TABLET PO PRN (20:47)
[2023-08-06] MEDS ORDERED: INSULIN (NOVOLOG) ASPART 100 UNITS/ML 10ML VIAL ONE (07:05)
[2023-08-06 17:45] LABS: URINE APPEARANCE CLEAR; URINE BILIRUBIN NEGATIVE (NEGATIVE); URINE COLOR YELLOW; URINE GLUCOSE (UA) NEGATIVE (NEGATIVE); URINE KETONE NEGATIVE (NEGATIVE); URINE LEUK ESTERASE NEGATIVE (NEGATIVE); URINE NITRITE NEGATIVE (NEGATIVE); URINE PROTEIN NEGATIVE (NEGATIVE); URINE UROBILINOGEN 0.2 mg/dL (0.2-1.0)
[2023-08-07] MEDS ORDERED: INSULIN (NOVOLOG) ASPART 100 UNITS/ML 10ML VIAL ONE ×2 (12:14→16:25)
[2023-08-08] MEDS ORDERED: INSULIN (NOVOLOG) ASPART 100 UNITS/ML 10ML VIAL ONE (12:01)
[2023-08-10] MEDS ORDERED: INSULIN (NOVOLOG) ASPART 100 UNITS/ML 10ML VIAL ONE (20:26)
[2023-08-11] MEDS ORDERED: INSULIN (NOVOLOG) ASPART 100 UNITS/ML 10ML VIAL ONE ×2 (11:04→17:10)
[2023-08-12] MEDS: LISINOPRIL 20 MG TABLET PO SCH (10:07)
[2023-08-12] MEDS ORDERED: INSULIN (NOVOLOG) ASPART 100 UNITS/ML 10ML VIAL ONE (11:50)
[2023-08-12] MEDS: PENICILLIN G BENZATHINE 2,400,000 UNIT/4 ML PFS IM ONE (11:52)
[2023-08-13] MEDS ORDERED: INSULIN (NOVOLOG) ASPART 100 UNITS/ML 10ML VIAL ONE ×2 (07:52→12:00)
[2023-08-13] MEDS: IBUPROFEN 600 MG TABLET (FP) PO PRN (10:36)
[2023-08-14 07:29] VITALS: RESP 18
[2023-08-14] MEDS ORDERED: INSULIN (NOVOLOG) ASPART 100 UNITS/ML 10ML VIAL ONE ×2 (11:42→11:54)
[2023-08-15] MEDS ORDERED: INSULIN (NOVOLOG) ASPART 100 UNITS/ML 10ML VIAL ONE ×2 (11:06→16:17)
[2023-08-15] MEDS: cloNIDine HCL 0.1 MG TABLET PO ONE (23:05)
[2023-08-16] MEDS: cloNIDine HCL 0.1 MG TABLET PO ONE (07:40)
[2023-08-16] MEDS ORDERED: INSULIN (NOVOLOG) ASPART 100 UNITS/ML 10ML VIAL ONE (16:39)
[2023-08-17] MEDS ORDERED: BENZOCAINE 20 % GEL TUBE MM PRN (08:54)
[2023-08-17] MEDS: amLODIPine BESYLATE 2.5 MG TABLET (FP) PO SCH (10:36)
[2023-08-17] MEDS ORDERED: COLLAGENASE CLOSTRIDIUM HIST. 30 GRAMS TUBE TP SCH (17:30)
[2023-08-17] MEDS: AMINO ACIDS/PROTEIN HYDROLYS 30 ML LIQUID.PKT PO SCH (19:46)
[2023-08-18] MEDS ORDERED: INSULIN (NOVOLOG) ASPART 100 UNITS/ML 10ML VIAL ONE (11:50)
[2023-08-18] MEDS: SILVER SULFADIAZINE 1% TOP CREAM 400 GM JAR TP SCH (16:40)
[2023-08-18] MEDS: ALBUTEROL SO4 HFA INHALER IH PRN (21:11)
[2023-08-19] MEDS: PENICILLIN G BENZATHINE 2,400,000 UNIT/4 ML PFS IM ONE (11:30)
[2023-08-19] MEDS ORDERED: INSULIN (NOVOLOG) ASPART 100 UNITS/ML 10ML VIAL ONE (11:40)
[2023-08-21] MEDS ORDERED: cloNIDine HCL 0.1 MG TABLET PO PRN (09:38)
[2023-08-21] MEDS: amLODIPine BESYLATE 5 MG TABLET (FP) PO SCH (09:50)
[2023-08-21 12:43] LABS: HIV INTERPRETATION NEGATIVE (NEGATIVE)
[2023-08-21] MEDS ORDERED: INSULIN (NOVOLOG) ASPART 100 UNITS/ML 10ML VIAL ONE (13:34)
[2023-08-22] MEDS ORDERED: INSULIN (NOVOLOG) ASPART 100 UNITS/ML 10ML VIAL ONE (06:02)
[2023-08-24 06:55] VITALS: BP 148/95; PULSE 90; TEMP 97.8
[2023-08-26] MEDS ORDERED: PENICILLIN G BENZATHINE 2,400,000 UNIT/4 ML PFS IM ONE (10:00)
== END 2023-08-24 09:05 | disposition home or self-care (01) | DRG 772 ==
LOC: YASAS 14:35 → Y5N 18:16 → UNDODISIN 08-15 18:50
PROVIDERS: ADMIT Allergy & Immunology; ATTEND Psychiatry & Neurology Pain Medicine
PROC: HZ42ZZZ Group Counseling for Substance Abuse Treatment, Cognitive-Behavioral (ICD-10-PCS; principal; 2023-08-03)
DX: F14.10 Cocaine abuse, uncomplicated (principal); F11.20 Opioid dependence, uncomplicated; F17.210 Nicotine dependence, cigarettes, uncomplicated; F31.9 Bipolar disorder, unspecified; I10 Essential (primary) hypertension; J45.909 Unspecified asthma, uncomplicated; E11.621 Type 2 diabetes mellitus with foot ulcer; L97.521 Non-pressure chronic ulcer of other part of left foot limited to breakdown of skin; Z79.4 Long term (current) use of insulin; R76.8 Other specified abnormal immunological findings in serum; Z86.19 Personal history of other infectious and parasitic diseases; Z56.0 Unemployment, unspecified; Z59.00 Homelessness unspecified
CPT/HCPCS: 36415; 80053; 80305; 80307; 81003; 82962; 85027; 86593; 86780; 87389; 87635; 93005; 93010; J0475